=== PATIENT | male | born 1955 | race Caucasian/White ===

== ENCOUNTER 2021-11-14 00:22 | Emergency (ER) | payer BC, SELFPAY ==
--- NOTE | ~2021-11-14 | CT_ITS ---
EXAMINATION: CT cervical spine wo con DATE: 11/14/2021 01:15 INDICATION: Head injury. TECHNIQUE: Computed tomography (CT) of the cervical spine was performed without intravenous contrast. Automated exposure control and iterative reconstruction technique were employed. The dose-length pro duct was 489.43 mGy-cm. COMPARISON: Cervical spine MRI 03/28/2018 FINDINGS: There is 16 degrees dextroscoliosis of cervical spine. There is hypolordosis of cervical sp ine. Vertebral body heights are normal. There is moderately decreased disc height from C3-C4 through C5-C6 and severely decreased disc height at C6-C7 and C7-T1. There is interbody fusion at C6-C7. Ther e are laminectomies from C3 to C6. The following disc levels are specifically discussed: C2-C3: There is mild bilateral uncovertebral joint osteoarthritis. There is mild bilateral facet join t osteoarthritis. There is no neural foraminal stenosis. There is no central canal stenosis. C3-C4: There is moderate right and severe left uncovertebral joint osteoarthritis. There is mild righ t and severe left facet joint osteoarthritis. There is mild right and moderate left neural foraminal stenosis. There is mild central canal stenosis with posterior decompression. C4-C5: There is severe left uncovertebral joint osteoarthritis. There is moderate right and severe le ft facet joint osteoarthritis. There is mild right and severe left neural foraminal stenosis. There i s mild central canal stenosis with posterior decompression. C5-C6: There is severe bilateral uncovertebral joint osteoarthritis. There is mild right and moderate left facet joint osteoarthritis. There is mild bilateral neural foraminal stenosis. There is mild ce ntral canal stenosis with posterior decompression. C6-C7: There is mild right and moderate left uncovertebral joint hypertrophy. There is mild bilateral facet joint hypertrophy. There is mild bilateral neural foraminal stenosis. There is mild central ca nal stenosis with posterior decompression. C7-T1: There is severe bilateral uncovertebral joint osteoarthritis. There is severe bilateral facet joint osteoarthritis. There is mild bilateral neural foraminal stenosis. There is mild central canal stenosis. IMPRESSION: 1. No fracture. 2. Severe cervical spondylosis. 3. Cervical dextroscoliosis. Reviewed, dictated and finalized at location [facility].
--- NOTE | ~2021-11-14 | CT_ITS ---
EXAMINATION: CT brain wo con DATE: 11/14/2021 01:14 INDICATION: Head injury. TECHNIQUE: Computed tomography (CT) of the head was performed without intravenous contrast. The mA wa s adjusted according to patient size. Iterative reconstruction technique was employed. The dose-lengt h product was 605.33 mGy-cm. COMPARISON: None FINDINGS: There are scattered areas of low attenuation in the cerebral white matter. There is no intr acranial hemorrhage, acute infarction, or abnormal intracranial mass lesion. The ventricles are lucy l in size. There is a right frontal lateral scalp hematoma. There is mild mucosal thickening in the p aranasal sinuses. The mastoid air cells are normal. The orbits are normal. IMPRESSION: 1. Mild nonspecific cerebral white matter disease, which likely represents chronic small vessel ische olive disease. Reviewed, dictated and finalized at location [facility]. IMPRESSION: 1. Mild nonspecific cerebral white matter disease, which likely represents retail selling specialist ihsan small vessel ischemic disease.
[2021-11-14 00:30] VITALS: BP 156/87; PULSE 87; RESP 16; TEMP 36.3; O2SAT 99
--- NOTE | 2021-11-14 00:42 | ED.HEATRA ---
HPI - Head Injury General Chief complaint: Head Injury Stated complaint: GLF - RT EYE HEMATOMA - ETOH Source: patient Mode of arrival: ambulatory Limitations: no limitations History of Present Illness HPI Narrative: 66-year-old male presents emergency room by ambulance. He was next-door to his neighbor's house drinking. He came back towards his house when he had a slip and fall striking the right side of his head. His found him out in the driveway. She called 911 and brought to the emergency room. Patient is obviously intoxicated. He is somewhat belligerent. He not sure when his last tetanus status was. He is able to talk and answer questions. Denies any other injuries. Related Data Home Medications Medication Instructions Recorded Confirmed metformin mg PO 11/14/21 Allergies Allergy/AdvReac Type Severity Reaction Status Date / Time No Known Allergies Allergy Verified 11/14/21 00:38 Review of Systems Review of Systems: CONSTITUTIONAL: Denies fever, chills, or sweats. EYES: Denies visual changes, redness, or discharge. ENT: Denies rhinorrhea, congestion, sore throat, or otalgia. CARDIOVASCULAR: Denies chest pain, palpitations, or edema. RESPIRATORY: Denies cough or dyspnea. GASTROINTESTINAL: Denies abdominal pain, nausea, vomiting, or diarrhea. GENITOURINARY: Denies dysuria or hematuria. SKIN: Denies rash or itching. MUSCULOSKELETAL: Denies back pain, joint pain, or myalgia. NEUROLOGIC: Denies headache, numbness, or weakness. PSYCHIATRIC: Denies anxiety or depression. [facility] Family History Family History Other Cerebrovascular accident Exam Narrative: APPEARANCE: Well appearing, no pain or distress, well-nourished. Obvious intoxication Head normocephalic. Approximately 3-1/2 to 4 cm diameter hematoma noted to the right frontal parietal region of the scalp with an abrasion over the central portion of it. Minimal bleeding noted. EYES: PERRLA/EOMI, conjunctivae very clear. NOSE: Normal with no drainage EARS:TMS clear Mario Galvin, with good light reflex. THROAT: Pharynx clear, no exudate. NECK: Supple. No adenopathy, no masses. RESPIRATORY: Airway patent, respirations nonlabored. Clear to auscultation bilaterally, no rales, rhonchi, wheezing. CARDIOVASCULAR: Regular rate and rhythm without murmurs, rubs, or gallops. ABDOMINAL: Soft, nontender, nondistended, no hepatosplenomegaly Musculoskeletal: Moves all extremities. Strength/ROM intact, No edema, No calf tenderness. NEURO: Alert. Cranial nerves II through XII intact. Normal gait. Good coordination. Nonfocal examination. SKIN:: Warm, dry. Normal Color PSYCHIATRIC: Intoxicated and somewhat belligerent at times Course Vital Signs Vital signs: Vital Signs Temperature 97.4 F L 11/14/21 00:30 Pulse Rate 87 11/14/21 00:30 Respiratory Rate 16 11/14/21 00:30 Blood Pressure 156/87 H 11/14/21 00:30 Pulse Oximetry 99 11/14/21 00:30 Temperature 97.4 F L 11/14/21 00:30 Pulse Rate 87 11/14/21 00:30 Respiratory Rate 16 11/14/21 00:30 Blood Pressure 156/87 H 11/14/21 00:30 Pulse Oximetry 99 11/14/21 00:30 MDM - Head Injury MDM Narrative Medical decision making narrative: CT scan was performed the head as well as cervical spine. No acute pathology or abnormalities noted. This was explained to the patient and his . Patient needs to go home and rest. His feels comfortable getting him home. Imaging Data Radiologist's impression: Impression of the CT of the head and neck by the radiologist shows no acute pathology. No fractures. No intracranial bleed. Discharge Plan Discharge Clinical Impression: Hematoma Closed head injury Qualifiers: Encounter type: initial encounter Qualified Code(s): S09.90XA - Unspecified injury of head, initial encounter Alcohol intoxication Qualifiers: Complication of substance-induced condition: uncomplicated Qualified Code(s):
[2021-11-14] MEDS: TETANUS/DIPHTHERIA TOXOIDS ADSORB 0.5 ML VIAL (*BKC) IM (01:48)
== END 2021-11-14 02:05 | disposition home or self-care (01) ==
PROVIDERS: Emergency Provider Emergency Medicine; PCP Family Medicine
DX: S00.03XA Contusion of scalp, initial encounter (principal); F10.129 Alcohol abuse with intoxication, unspecified; Z23 Encounter for immunization; Y90.9 Presence of alcohol in blood, level not specified; W01.0XXA Fall on same level from slipping, tripping and stumbling without subsequent striking against object, initial encounter
CPT/HCPCS: 70450; 72125; 90471; 90714; 99284

== ENCOUNTER 2022-09-03 06:52 | Emergency (ER) | payer OTHER, SELFPAY ==
--- NOTE | ~2022-09-03 | XR_ITS ---
AP and oblique views of the left ribs, and PA and lateral chest radiographs Clinical History: Pain Findings: No rib fracture is seen. Osseous alignment is anatomic. Lungs are clear, without focal cons olidation or pleural effusion. Cardiomediastinal contour is within normal limits. Soft tissues are un remarkable. Impression: No rib fracture is seen. Clear lungs. Reviewed, dictated and finalized at [facility]. [employer] Impression: No rib fracture is seen. Clear lungs.
[2022-09-03 06:56] VITALS: BP 161/70; PULSE 88; RESP 20; TEMP 36.8; O2SAT 99
--- NOTE | 2022-09-03 07:32 | PC.NURSE ---
Patient to X-ray.
[2022-09-03] MEDS: HYDROcodone/acetaminophen (*CRX) 5-325 MG TABLET 1 TAB PO (08:28)
[2022-09-03 08:58] VITALS: TEMP 36.9
--- NOTE | 2022-09-03 09:23 | ED.GENADULT ---
HPI - General Adult General Chief complaint: Abdominal Pain Stated complaint: flank pain Time Seen by Provider: 09/03/22 07:04 History of Present Illness HPI narrative: Patient is a 67-year-old male who presents ER with left-sided chest wall pain. Worse with twisting. Reports yesterday he was twisting when he felt a pop in his chest wall with sudden onset pain. Its persisted since then. Pain spikes in intensity. Only alleviating factors laying still. No difficulty breathing. No wheezing or cough. Denies fevers or chills or sweats. Related Data Home Medications Medication Instructions Recorded Confirmed metformin 500 mg tablet,extended mg PO 11/14/21 release 24 hr Allergies Allergy/AdvReac Type Severity Reaction Status Date / Time No Known Allergies Allergy Verified 11/14/21 00:38 Review of Systems Review of Systems: All systems reviewed & are unremarkable except as noted in HPI and below Constitutional: Constitutional: Denies chills, Denies fatigue and Denies fever(s) ENT: Denies nasal congestion and Denies sore throat Cardiovascular: Cardiovascular: Reports chest pain (chest wlal), Denies rapid heart rate and Denies radiating jaw, neck or arm pain Respiratory: Respiratory: Denies cough, Denies dyspnea and Denies wheezing Gastrointestinal: Gastrointestinal: Denies abdominal pain, Denies nausea and Denies vomiting PMFSH Family History Family History Other Cerebrovascular accident Exam Narrative: GENERAL: Well-appearing, well-nourished, and in no acute distress. HEAD: Normocephalic, atraumatic. ENT: Mucous membranes moist. CHEST: Clear to auscultation. No respiratory distress. Tender palpation lateral lower chest wall without crepitus/bruising/swelling. HEART: Regular rate and rhythm. Normal peripheral pulses. EXTREMITIES: Normal range of motion. No edema. SKIN: Warm, dry, no rash. NEURO: Alert and oriented x3. PSYCH: Normal mood and affect. Course Course Emergency Course: Patient informed of results. No obvious rib fracture but patient certainly seems to have symptoms of rib fracture. Will treat with Tylenol with hydrocodone at home. Discussed return precautions including development of pneumonialike symptoms or sudden worsening in breathing. Patient verbalized understanding Vital Signs Vital signs: Vital Signs Temperature 98.2 F 09/03/22 06:56 Pulse Rate 88 09/03/22 06:56 Respiratory Rate 20 09/03/22 06:56 Blood Pressure 161/70 H 09/03/22 06:56 Pulse Oximetry 99 09/03/22 06:56 Oxygen Delivery Room Air 09/03/22 06:56 Temperature 98.2 F 09/03/22 06:56 Pulse Rate 88 09/03/22 06:56 Respiratory Rate 20 09/03/22 06:56 Blood Pressure 161/70 H 09/03/22 06:56 Pulse Oximetry 99 09/03/22 06:56 Oxygen Delivery Room Air 09/03/22 06:56 Medical Decision Making Vital Signs Vital Signs: Vital Signs Temperature 98.2 F 09/03/22 06:56 Pulse Rate 88 09/03/22 06:56 Respiratory Rate 20 09/03/22 06:56 Blood Pressure 161/70 H 09/03/22 06:56 Pulse Oximetry 99 09/03/22 06:56 Oxygen Delivery Room Air 09/03/22 06:56 Temperature 98.2 F 09/03/22 06:56 Pulse Rate 88 09/03/22 06:56 Respiratory Rate 20 09/03/22 06:56 Blood Pressure 161/70 H 09/03/22 06:56 Pulse Oximetry 99 09/03/22 06:56 Oxygen Delivery Room Air 09/03/22 06:56 Imaging Data Radiologist's impression: ITS Impressions Ribs w/Chest X-Ray 09/03/22 07:35 Impression: No rib fracture is seen. Clear lungs. Discharge Plan Discharge Clinical Impression: Acute chest wall pain Patient Disposition: Home, Self-Care Condition: Stable Instructions: Chest Wall Pain (ED) Additional Instructions: Return the ER if you cannot breathe, you cannot keep down food or water, you have fever over 100.4 ?F, or you have additional concerns. Take Tylenol with hydrocodone as you
[2022-09-03 10:00] VITALS: BP 126/90; PULSE 85; RESP 15; TEMP 36.9; O2SAT 100
== END 2022-09-03 10:00 | disposition home or self-care (01) ==
PROVIDERS: Emergency Provider Emergency Medicine; PCP Family Medicine
DX: R07.89 Other chest pain (principal)
CPT/HCPCS: 71046; 71100; 99283; A9270

== ENCOUNTER 2024-04-20 15:47 | Outpatient (CLI) | payer BC, SELFPAY ==
--- NOTE | ~2024-04-20 | CT_ITS ---
EXAMINATION:CT lung screening DATE: 04/20/2024 15:59 INDICATION: Personal history of nicotine dependence. Current smoker with 25 pack year history. TECHNIQUE: Computed tomography (CT) of the chest was performed without intravenous contrast. Automate d exposure control and iterative reconstruction technique were employed. The dose-length product (DLP ) was 75.19 mGy-cm. COMPARISON: Chest CT 02/07/2016 FINDINGS: There is stable mild scarring at the lung apices. There is mild atelectasis in right middle lobe and lingula. A calcified left lung nodule and calcified left hilar lymph nodes are consistent w ith old granulomatous disease. No pleural effusion. The heart size is normal. No pericardial effusion . There is severe cervical spondylosis and mild thoracic spondylosis. There is mild chronic anterior wedging of T12-L2 vertebral bodies. IMPRESSION: 1. Lung-RADS category 2: Benign appearance or behavior. Continue annual screening with noncontrast lo w-dose chest CT in 12 months. Reviewed, dictated and finalized at location A. IMPRESSION: 1. Lung-RADS category 2: Benign appearance or behavior. Continue annual screeni ng with noncontrast low-dose chest CT in 12 months.
== END 2024-04-20 15:48 | disposition home or self-care (01) ==
LOC: MICIMG 15:48
PROVIDERS: PCP Nurse Practitioner Family; Visit Provider Nurse Practitioner Family
DX: Z12.2 Encounter for screening for malignant neoplasm of respiratory organs (principal); F17.210 Nicotine dependence, cigarettes, uncomplicated
CPT/HCPCS: 71271